=== PATIENT | female | born 1975 | race Caucasian/White ===

== ENCOUNTER 2017-02-22 17:06 | Emergency (ER) | payer MEDICAID ==
[2017-02-22 17:55] VITALS: BP 109/68; PULSE 74; RESP 18; TEMP 98.6; O2SAT 100
--- NOTE | 2017-02-22 18:29 | ED PDOC ---
HPI: Skin/Bite Injury Time Seen by Provider: 02/22/17 18:10 Chief Complaint (Nursing): Bite Chief Complaint (Provider): bite History Per: Patient History/Exam Limitations: no limitations Additional Complaint(s): 42yo F in ED for eval of left upper abdominal lesions noted 1 week ago and progressively worsened over the week with burning warmth redness and drainage after bug bite outdoors. admits to dizziness. denies fever chills nausea or vomiting. Past Medical History Reviewed: Historical Data, Nursing Documentation, Vital Signs Vital Signs: Last Vital Signs Temp 98.6 F 02/22/17 17:50 Pulse 74 02/22/17 17:50 Resp 18 02/22/17 17:50 BP 109/68 02/22/17 17:50 Pulse Ox 100 02/22/17 20:27 - Medical History PMH: Chronic Kidney Disease - Family History Family History: States: Unknown Family Hx - Home Medications Home Medications: Ambulatory Orders Medication Instructions Recorded Naproxen 500 mg PO BID #20 tab 05/28/16 Cephalexin [cephalexin] 500 mg PO BID #20 cap 02/22/17 Sulfamethoxazole/Trimethoprim 1 tab PO BID #14 tab 02/22/17 [Bactrim DS 800 mg-160 mg] - Allergies Allergies/Adverse Reactions: Allergies Allergy/AdvReac Type Severity Reaction Status Date / Time No Known Allergies Allergy Verified 05/28/16 12:46 Review of Systems ROS Statement: Except As Marked, All Systems Reviewed And Found Negative Skin: Positive for: Lesions (to left upper abd) Physical Exam - Reviewed Nursing Documentation Reviewed: Yes Vital Signs Reviewed: Yes - Physical Exam Appears: Positive for: Well, Non-toxic, No Acute Distress Skin: Positive for: Normal Color, Warm, DRY Cardiovascular/Chest: Positive for: Regular Rate, Rhythm Respiratory: Positive for: CNT, Normal Breath Sounds Gastrointestinal/Abdominal: Positive for: Tenderness (noted to left upper abd irregular shaped lesions with indruation open wound 3x2, with surrodning ertyhema warmth and streaking. lesion is superficial based on exma.), Other. Negative for: Normal Exam, Bowel Sounds, Soft Neurologic/Psych: Positive for: Alert, Oriented - Laboratory Results Result Diagrams: 02/22/17 19:30 02/22/17 19:30 - ECG O2 Sat by Pulse Oximetry: 100 - Radiology X-Ray: Interpreted by Me X-Ray Interpretation: No Acute Disease - Progress ED Course And Treament: pt will get IV abd in ED, labs and xray. Medical Decision Making Medical Decision Making: Pt with no elevated WBC pt stable in ED with stable VS. pt will need to re-eval in 3 days by PMD d/c with bactrim and Keflex. Disposition - Clinical Impression Clinical Impression: Cellulitis - Patient ED Disposition Is Patient to be Admitted: No Counseled Patient/Family Regarding: Studies Performed, Diagnosis, Need For Followup, Rx Given - Disposition Disposition: Routine/Home Disposition Time: 21:21 Condition: STABLE Prescriptions: Cephalexin [cephalexin] 500 mg PO BID #20 cap Sulfamethoxazole/Trimethoprim [Bactrim DS 800 mg-160 mg] 1 tab PO BID #14 tab Instructions: Cellulitis (ED)
[2017-02-22] MEDS ORDERED: cefTRIAXone (Rocephin) 1 gm Inj ONE (19:43)
[2017-02-22 20:10] LABS: BASO % 0.3 % (0.0-2.0); EOS # 0.3 K/uL (0.0-0.7); EOS % 4.7 % (0.0-4.0); MEAN CELL VOLUME 84.7 fl (81.0-99.0); MEAN CORPUSCULAR HEMOGLOBIN 27.7 pg (27.0-31.0); MEAN CORPUSCULAR HGB CONC 32.7 g/dL (33.0-37.0); MEAN PLATELET VOLUME 7.5 fl (7.2-11.7); MONO # 0.4 K/uL (0.0-0.8); NEUT # 3.3 K/uL (1.8-7.0); RBC 4.68 Mil/uL (3.80-5.20); RED CELL DISTRIBUTION WIDTH 13.8 % (11.5-14.5)
[2017-02-22 20:20] LABS: ALB/GLOB RATIO 1.3 (1.0-2.1); ALBUMIN 4.3 g/dL (3.5-5.0); ALT/SGPT 30 U/L (9-52); AST/SGOT 26 U/L (14-36); BLOOD UREA NITROGEN 15 mg/dl (7-17); CALCIUM 9.6 mg/dL (8.4-10.2); GFR AFRICAN-AMERICAN > 60; GFR NON-AFRICAN AMERICAN > 60
--- NOTE | 2017-02-23 09:40 | RAD ---
HISTORY: abscess COMPARISON: No prior. FINDINGS: BOWEL: Normal. No obstruction. No free air. BONES: Normal. OTHER FINDINGS: None. IMPRESSION: No radiographic evidence of acute/active disease in the abdomen and pelvis. If indicated further assessment by CT may be obtained.
== END 2017-02-22 22:00 | disposition home or self-care (01) ==
LOC: H.ER 17:06
DX: L03.90 Cellulitis, unspecified (principal); N18.9 Chronic kidney disease, unspecified

== ENCOUNTER 2017-05-02 11:07 | Emergency (ER) | payer MEDICAID ==
[2017-05-02 11:21] VITALS: BP 99/54; PULSE 68; RESP 16; TEMP 97.3; O2SAT 99
--- NOTE | 2017-05-02 11:45 | ED PDOC ---
HPI: Skin/Bite Injury Time Seen by Provider: 05/02/17 11:25 Chief Complaint (Nursing): Abnormal Skin Integrity Chief Complaint (Provider): Abscess, UTI History Per: Patient Additional Complaint(s): 42 yo female, no PMH, presents to ED with complaints of infected pimple on lt hip x 4 days, also states when she urinates she feels that her bladder does not fully empty, denies dysuria or hematuria No fever or chills. Past Medical History Reviewed: Nursing Documentation, Vital Signs Vital Signs: Last Vital Signs Temp 97.3 F L 05/02/17 11:17 Pulse 68 05/02/17 11:17 Resp 16 05/02/17 11:17 BP 99/54 L 05/02/17 11:17 Pulse Ox 99 05/02/17 11:45 - Medical History PMH: No Chronic Diseases - Surgical History Surgical History: No Surg Hx - Family History Family History: States: Unknown Family Hx - Living Arrangements Living Arrangements: With Family - Social History Current smoker - smoking cessation education provided: No Alcohol: Social Drugs: Denies - Home Medications Home Medications: Ambulatory Orders Medication Instructions Recorded RX: Naproxen 500 mg PO BID #20 tab 05/28/16 Cephalexin [cephalexin] 500 mg PO BID #20 cap 02/22/17 Sulfamethoxazole/Trimethoprim 1 tab PO BID #14 tab 02/22/17 [Bactrim DS 800 mg-160 mg] Cephalexin [cephalexin] 500 mg PO BID #14 cap 05/02/17 Sulfamethoxazole/Trimethoprim 1 tab PO BID 5 Days tab 05/02/17 [Bactrim DS 800 mg-160 mg] - Allergies Allergies/Adverse Reactions: Allergies Allergy/AdvReac Type Severity Reaction Status Date / Time No Known Allergies Allergy Verified 05/02/17 11:16 Review of Systems ROS Statement: Except As Marked, All Systems Reviewed And Found Negative Skin: Positive for: Lesions Physical Exam - Reviewed Nursing Documentation Reviewed: Yes Vital Signs Reviewed: Yes - Physical Exam Appears: Positive for: Well, Non-toxic, No Acute Distress Head Exam: Positive for: ATRAUMATIC, NORMAL INSPECTION, NORMOCEPHALIC Skin: Positive for: Normal Color, Warm, Rash (tender, erythematous, non fluctuant mass to left outter hip ~ 2 cm. ) Eye Exam: Positive for: EOMI, Normal appearance, PERRL ENT: Positive for: Normal ENT Inspection Neck: Positive for: Normal, Painless ROM Cardiovascular/Chest: Positive for: Regular Rate, Rhythm Respiratory: Positive for: CNT, Normal Breath Sounds Gastrointestinal/Abdominal: Positive for: Normal Exam, Bowel Sounds, Soft Back: Positive for: Normal Inspection. Negative for: L CVA Tenderness, R CVA Tenderness Extremity: Positive for: Normal ROM Neurologic/Psych: Positive for: Alert, Oriented - Laboratory Results Result Diagrams: 05/02/17 11:55 05/02/17 11:55 - ECG O2 Sat by Pulse Oximetry: 99 Medical Decision Making Medical Decision Making: IV access established and diagnostics ordered Labs resulted and reviewed with Pt who demonstrated full understanding Started on Bactrim and keflex. Warm compresses advised Disposition - Clinical Impression Clinical Impression: Cellulitis, Abscess - Patient ED Disposition Is Patient to be Admitted: No - Disposition Disposition: Routine/Home Disposition Time: 14:19 Condition: STABLE Prescriptions: Cephalexin [cephalexin] 500 mg PO BID #14 cap Sulfamethoxazole/Trimethoprim [Bactrim DS 800 mg-160 mg] 1 tab PO BID 5 Days tab Instructions: Abscess (ED), Cellulitis (ED) Forms: [employer] (Japanese)
[2017-05-02 12:06] LABS: BASO % 0.5 % (0.0-2.0); EOS # 0.2 K/uL (0.0-0.7); EOS % 4.4 % (0.0-4.0); HEMATOCRIT 40.9 % (34.0-47.0); LYMPH # 1.9 K/uL (1.0-4.3); MEAN CORPUSCULAR HEMOGLOBIN 27.2 pg (27.0-31.0); MEAN PLATELET VOLUME 7.3 fl (7.2-11.7); MONO # 0.3 K/uL (0.0-0.8); MONO % 5.3 % (0.0-10.0); NEUT % 54.8 % (50.0-75.0); NRBC % 0.1 % (0.0-0.0); RED CELL DISTRIBUTION WIDTH 13.7 % (11.5-14.5); WHITE BLOOD COUNT 5.4 K/uL (4.8-10.8)
[2017-05-02 12:08] LABS: ALB/GLOB RATIO 1.3 (1.0-2.1); ALKALINE PHOSPHATASE 56 U/L (38-126); ALT/SGPT 29 U/L (9-52); AST/SGOT 22 U/L (14-36); BILIRUBIN,TOTAL 0.5 mg/dl (0.2-1.3); BLOOD UREA NITROGEN 11 mg/dl (7-17); CALCIUM 9.4 mg/dL (8.4-10.2); CARBON DIOXIDE 26 mmol/L (22-30); CHLORIDE 103 mmol/L (98-107); GFR AFRICAN-AMERICAN > 60; GLUCOSE,RANDOM 89 mg/dL (65-105); POTASSIUM 4.1 MMOL/L (3.6-5.0); SODIUM 142 mmol/l (132-148); TOTAL PROTEIN 7.6 G/DL (6.3-8.2)
[2017-05-02 12:44] LABS: RBC URINE 3 /hpf (0-3); URINE BILIRUBIN NEGATIVE (NEGATIVE); URINE BLOOD NEGATIVE (NEGATIVE); URINE COLOR YELLOW (YELLOW); URINE GLUCOSE (UA) NEG (Normal); URINE KETONE NEGATIVE (NEGATIVE); URINE LEUKOCYTE ESTERASE NEG Leu/uL (Negative); URINE PROTEIN NEGATIVE (NEGATIVE); URINE UROBILINOGEN 0.2-1.0 mg/dL (0.2-1.0); WBC URINE < 1 /hpf (0-5)
[2017-05-02] MEDS ORDERED: Tmp-Smz 800 mg-160 mg DS Tab PO STA (13:57)
[2017-05-02] MEDS ORDERED: Tmp-Smz 800 mg-160 mg DS Tab ONE (14:04)
== END 2017-05-02 14:16 | disposition home or self-care (01) ==
LOC: H.ER 11:07
DX: L02.416 Cutaneous abscess of left lower limb (principal); L03.116 Cellulitis of left lower limb

== ENCOUNTER 2017-09-11 11:21 | Emergency (ER) | payer MEDICAID ==
[2017-09-11 11:47] VITALS: BP 113/57; PULSE 65; RESP 16; TEMP 98.7; O2SAT 100
--- NOTE | 2017-09-11 12:22 | ED PDOC ---
HPI: General Adult Time Seen by Provider: 09/11/17 11:48 Chief Complaint (Nursing): Breast Problem Chief Complaint (Provider): Breast Problem History Per: Patient History/Exam Limitations: no limitations Onset/Duration Of Symptoms: Days (x1 month) Current Symptoms Are (Timing): Still Present Additional Complaint(s): 42 year old female with no significant past medical history, who presents to the ED complaining of intermittent pain and swelling to her left breast x1 month. Denies fever, trauma, drainage, or swelling. Also denies discharge from nipple. PMD: Patrice Gillespie Past Medical History Reviewed: Historical Data, Nursing Documentation, Vital Signs Vital Signs: Last Vital Signs Temp 98.7 F 09/11/17 11:44 Pulse 65 09/11/17 11:44 Resp 16 09/11/17 11:44 BP 113/57 L 09/11/17 11:44 Pulse Ox 100 09/11/17 12:33 - Medical History PMH: Chronic Kidney Disease - Surgical History Surgical History: No Surg Hx - Family History Family History: States: Unknown Family Hx - Home Medications Home Medications: Ambulatory Orders Medication Instructions Recorded Naproxen 500 mg PO BID #20 tab 05/28/16 Cephalexin [cephalexin] 500 mg PO BID #20 cap 02/22/17 Sulfamethoxazole/Trimethoprim 1 tab PO BID #14 tab 02/22/17 [Bactrim DS 800 mg-160 mg] Cephalexin [cephalexin] 500 mg PO BID #14 cap 05/02/17 Sulfamethoxazole/Trimethoprim 1 tab PO BID 5 Days tab 05/02/17 [Bactrim DS 800 mg-160 mg] Naproxen [Naprosyn] 500 mg PO Q12H #20 tab 09/11/17 - Allergies Allergies/Adverse Reactions: Allergies Allergy/AdvReac Type Severity Reaction Status Date / Time No Known Allergies Allergy Verified 09/11/17 11:44 Review of Systems ROS Statement: Except As Marked, All Systems Reviewed And Found Negative Musculoskeletal: Positive for: Other (left breast pain) Physical Exam - Reviewed Nursing Documentation Reviewed: Yes Vital Signs Reviewed: Yes - Physical Exam Appears: Positive for: Well, Non-toxic, No Acute Distress Head Exam: Positive for: ATRAUMATIC, NORMAL INSPECTION, NORMOCEPHALIC Skin: Positive for: Normal Color, Warm, Dry. Negative for: Rash Eye Exam: Positive for: EOMI, Normal appearance, PERRL ENT: Positive for: Normal ENT Inspection Neck: Positive for: Normal, Painless ROM, Supple Cardiovascular/Chest: Positive for: Regular Rate, Rhythm, Other (no focal mass or tenderness to left breast throughout fibrocystic area, no LAD, no discharge from nipple ). Negative for: Murmur Respiratory: Positive for: Normal Breath Sounds. Negative for: Respiratory Distress Gastrointestinal/Abdominal: Positive for: Normal Exam, Bowel Sounds, Soft. Negative for: Tenderness Back: Positive for: Normal Inspection. Negative for: L CVA Tenderness, R CVA Tenderness Extremity: Positive for: Normal ROM. Negative for: Pedal Edema, Deformity Lymphatic: Negative for: Adenopathy Neurologic/Psych: Positive for: Alert, Oriented (x3). Negative for: Motor/ Sensory Deficits - ECG O2 Sat by Pulse Oximetry: 100 (RA) Pulse Ox Interpretation: Normal Medical Decision Making Medical Decision Making: Time: 12:00 Initial Plan: --Reevaluation Scribe Attestation: Documented by Derrell Lucero, acting as a scribe for Peng Gaona MD. Provider Scribe Attestation: All medical record entries made by the Scribe were at my direction and personally dictated by me. I have reviewed the chart and agree that the record accurately reflects my personal performance of the history, physical exam, medical decision making, and the department course for this patient. I have also personally directed, reviewed, and agree with the discharge instructions and disposition. Disposition - Clinical Impression Clinical Impression: Disorder of breast - Patient ED Disposition Is Patient to be Admitted: No - Disposition Referrals: [facility] [Outside] Disposition: Routine/Home Disposition Time: 12:35 Condition: FAIR Additional Instructions: Mammogram Prescriptions: Naproxen [Naprosyn] 500 mg PO Q12H #20 tab Instructions: Breast Self Exam for Women (ED) Forms: [employer] (Gambian)
== END 2017-09-11 12:49 | disposition home or self-care (01) ==
LOC: H.ER 11:21
DX: N64.9 Disorder of breast, unspecified (principal); N18.9 Chronic kidney disease, unspecified

== ENCOUNTER 2018-02-10 01:07 | Emergency (ER) | payer MEDICAID ==
--- NOTE | 2018-02-10 03:09 | ED PDOC ---
HPI: Chest Pain Time Seen by Provider: 02/10/18 01:43 Chief Complaint (Nursing): Chest Pain Chief Complaint (Provider): Chest Pain History Per: Patient History/Exam Limitations: no limitations Onset/Duration Of Symptoms: Hrs, Intermittent Episodes Current Symptoms Are (Timing): Still Present Quality: Pressure, "Pain" Associated Symptoms: Dyspnea Additional Complaint(s): Bobbi Pascal is a 43 year old female with a past medical history of renal disease who is presenting to the ED with complaints of chest pain, onset around 8 pm last night. She states that she experiences intermittent episodes of pressure and pain in the chest associated with shortness of breath and tingling in the hands. Patient denies any cough or fevers. PMD: none provided Past Medical History Reviewed: Historical Data, Nursing Documentation, Vital Signs Vital Signs: Last Vital Signs Temp 97.6 F 02/10/18 01:17 Pulse 74 02/10/18 03:19 Resp 18 02/10/18 01:17 BP 103/49 L 02/10/18 01:58 Pulse Ox 100 02/10/18 03:19 - Medical History PMH: Chronic Kidney Disease - Surgical History Other surgeries: Tubal Ligation - Family History Family History: States: Unknown Family Hx - Social History Current smoker - smoking cessation education provided: No Alcohol: None Drugs: Denies - Home Medications Home Medications: Ambulatory Orders Medication Instructions Recorded Naproxen 500 mg PO BID #20 tab 05/28/16 Cephalexin [cephalexin] 500 mg PO BID #20 cap 02/22/17 Sulfamethoxazole/Trimethoprim 1 tab PO BID #14 tab 02/22/17 [Bactrim DS 800 mg-160 mg] Cephalexin [cephalexin] 500 mg PO BID #14 cap 05/02/17 Sulfamethoxazole/Trimethoprim 1 tab PO BID 5 Days tab 05/02/17 [Bactrim DS 800 mg-160 mg] Naproxen [Naprosyn] 500 mg PO Q12H #20 tab 09/11/17 - Allergies Allergies/Adverse Reactions: Allergies Allergy/AdvReac Type Severity Reaction Status Date / Time No Known Allergies Allergy Verified 09/11/17 11:44 VALENTINE Risk Score for UA/NSTEMI - VALENTINE Risk Score Age > 64: NO 3 or more CAD Risk Factors: NO Known CAD (Stenosis greater than 50%): NO Aspirin use in past 7 days: NO Severe Angina: NO EKG ST changes greater than 0.5mm: NO Positive Cardiac Marker: NO VALENTINE Score: 0 Risk %: 5% Wells Criteria for PE - Wells Criteria for Pulmonary Embolism Clinical Signs and Symptoms of DVT: No P.E is #1 Diagnosis, or Equally Likely: No Heart Rate >100: No Immobilization at least 3 days;Surgery previous 4 weeks: No Previous, objectively diagnosed PE or DVT: No Hemoptysis: No Malignancy w/treatment within 6 months, or palliative: No Total Score: 0 Review of Systems ROS Statement: Except As Marked, All Systems Reviewed And Found Negative Constitutional: Negative for: Fever Cardiovascular: Positive for: Chest Pain Respiratory: Positive for: Shortness of Breath. Negative for: Cough Neurological: Positive for: Other (tingling in hands) Physical Exam - Reviewed Nursing Documentation Reviewed: Yes Vital Signs Reviewed: Yes - Physical Exam Appears: Positive for: Non-toxic, No Acute Distress Head Exam: Positive for: ATRAUMATIC, NORMAL INSPECTION, NORMOCEPHALIC Skin: Positive for: Normal Color, Warm, DRY Eye Exam: Positive for: EOMI, Normal appearance, PERRL ENT: Positive for: Normal ENT Inspection Neck: Positive for: Normal, Painless ROM Cardiovascular/Chest: Positive for: Regular Rate, Rhythm, Other (left chest wall tenderness). Negative for: Murmur Respiratory: Positive for: Normal Breath Sounds. Negative for: Respiratory Distress Gastrointestinal/Abdominal: Positive for: Normal Exam, Soft. Negative for: Tenderness Back: Positive for: Normal Inspection Extremity: Positive for: Normal ROM. Negative for: Deformity, Swelling Neurologic/Psych: Positive for: Alert, Oriented. Negative for: Motor/Sensory Deficits - Laboratory Results Result Diagrams: 02/10/18 03:19 02/10/18 03:19 - ECG ECG Rhythm: Positive for: Normal QRS, Normal ST Segment, Sinus Rhythm (normal) Rate: 74 O2 Sat by Pulse Oximetry: 100 (RA) Pulse Ox Interpretation: Normal Medical Decision Making Medical Decision Making: Time: 2:56 Impression: Chest Pain Differentials: ACS, Pulmonary Embolism, costochondritis, anemia Plan: --EKG --BMP --Troponin --ED urine --CBC --D Dimer --CXR Scribe Attestation: Documented by, Cordelia Araya acting as a scribe for Kaiser Sifuentes MD. Provider Scribe Attestation: All medical record entries made by the Scribe were at my direction and personally dictated by me. I have reviewed the chart and agree that the record accurately reflects my personal performance of the history, physical exam, medical decision making, and the department course for this patient. I have also personally directed, reviewed, and agree with the discharge instructions and disposition. Disposition - Clinical Impression Clinical Impression: Chest pain - Patient ED Disposition Is Patient to be Admitted: No Doctor Will See Patient In The: Office Counseled Patient/Family Regarding: Studies Performed, Diagnosis, Need For Followup - Disposition Disposition: Routine/Home Disposition Time: 04:46 Condition: GOOD Additional Instructions: Follow up with your PCP in 2-3 days. Take motrin for pain. Return for worsening. Instructions: Chest Pain
[2018-02-10 03:26] LABS: BASO % 0.4 % (0.0-2.0); EOS # 0.3 K/uL (0.0-0.7); EOS % 3.5 % (0.0-4.0); HEMOGLOBIN 13.8 g/dL (12.0-16.0); LYMPH # 2.1 K/uL (1.0-4.3); LYMPH % 29.6 % (20.0-40.0); MEAN CORPUSCULAR HEMOGLOBIN 28.8 pg (27.0-31.0); MEAN CORPUSCULAR HGB CONC 33.9 g/dL (33.0-37.0); MEAN PLATELET VOLUME 7.2 fl (7.2-11.7); MONO # 0.4 K/uL (0.0-0.8); MONO % 4.9 % (0.0-10.0); NEUT # 4.4 K/uL (1.8-7.0); NEUT % 61.6 % (50.0-75.0); NRBC % 0.2 % (0.0-0.0); RBC 4.8 Mil/uL (3.80-5.20); RED CELL DISTRIBUTION WIDTH 13.4 % (11.5-14.5); WHITE BLOOD COUNT 7.2 K/uL (4.8-10.8)
[2018-02-10 03:35] LABS: BLOOD UREA NITROGEN 13 mg/dl (7-17); CALCIUM 9.1 mg/dL (8.4-10.2); GFR AFRICAN-AMERICAN > 60; GFR NON-AFRICAN AMERICAN > 60
[2018-02-10 05:40] VITALS: BP 101/68; PULSE 62; RESP 16; TEMP 98.6; O2SAT 98
--- NOTE | 2018-02-10 10:26 | RAD ---
PROCEDURE: CHEST RADIOGRAPH, 1 VIEW HISTORY: chest pain COMPARISON: 01/23/2016 FINDINGS: LUNGS: Clear. PLEURA: No pneumothorax or pleural fluid seen. CARDIOVASCULAR: Normal. OSSEOUS STRUCTURES: No significant abnormalities. VISUALIZED UPPER ABDOMEN: Normal. OTHER FINDINGS: None. IMPRESSION: No active disease. No acute/significant interval changes.
--- NOTE | 2018-02-10 18:05 | CARD ---
APPROVED REPORT EKG Measurement Heart [id number] <Conclusion> Normal sinus rhythm Normal ECG
== END 2018-02-10 05:27 | disposition home or self-care (01) ==
LOC: H.ER 01:07
DX: R07.89 Other chest pain (principal); N18.9 Chronic kidney disease, unspecified

== ENCOUNTER 2018-03-12 11:12 | Emergency (ER) | payer MEDICAID ==
[2018-03-12 11:22] VITALS: PULSE 59
--- NOTE | 2018-03-12 12:02 | ED PDOC ---
HPI: General Adult Time Seen by Provider: 03/12/18 11:50 Chief Complaint (Nursing): Abnormal Skin Integrity Chief Complaint (Provider): Abnormal Skin Integrity History Per: Patient History/Exam Limitations: no limitations Onset/Duration Of Symptoms: Days Current Symptoms Are (Timing): Still Present Additional Complaint(s): 43 y/o female presents to the ED complaining of small swelling under the right armpit, onset a few days ago. Patient reports of similar swelling in the left gluteal region that resolved with antibiotics. Patient also reports of having a breast ultrasound performed recently within the last few months and noted multiple cysts on her breasts. Patient also complains of mild vaginal pruritus. Denies fever and chills. PMD: None Provided. Past Medical History Reviewed: Historical Data, Nursing Documentation, Vital Signs Vital Signs: Last Vital Signs Temp 97.8 F 03/12/18 11:21 Pulse 59 L 03/12/18 11:21 Resp 18 03/12/18 11:21 BP 94/58 L 03/12/18 11:21 Pulse Ox 100 03/12/18 12:07 - Medical History PMH: Chronic Kidney Disease - Surgical History Surgical History: No Surg Hx - Family History Family History: States: Unknown Family Hx - Home Medications Home Medications: Ambulatory Orders Medication Instructions Recorded Naproxen 500 mg PO BID #20 tab 05/28/16 Cephalexin [cephalexin] 500 mg PO BID #20 cap 02/22/17 Sulfamethoxazole/Trimethoprim 1 tab PO BID #14 tab 02/22/17 [Bactrim DS 800 mg-160 mg] Cephalexin [cephalexin] 500 mg PO BID #14 cap 05/02/17 Sulfamethoxazole/Trimethoprim 1 tab PO BID 5 Days tab 05/02/17 [Bactrim DS 800 mg-160 mg] Naproxen [Naprosyn] 500 mg PO Q12H #20 tab 09/11/17 Clindamycin [Cleocin] 300 mg PO Q6 #28 cap 03/12/18 Miconazole Nitrate [Monistat 3] 1 each VG DAILY #3 kit 03/12/18 - Allergies Allergies/Adverse Reactions: Allergies Allergy/AdvReac Type Severity Reaction Status Date / Time No Known Allergies Allergy Verified 09/11/17 11:44 Review of Systems ROS Statement: Except As Marked, All Systems Reviewed And Found Negative Constitutional: Negative for: Fever, Chills Genitourinary Female: Positive for: Other (mild vaginal pruritus) Musculoskeletal: Positive for: Other (small swelling under right armpit. ) Physical Exam - Reviewed Nursing Documentation Reviewed: Yes Vital Signs Reviewed: Yes - Physical Exam Appears: Positive for: No Acute Distress Head Exam: Positive for: ATRAUMATIC Skin: Positive for: Normal Color, Warm, Dry Eye Exam: Positive for: Normal appearance Neck: Positive for: Normal, Painless ROM Cardiovascular/Chest: Negative for: Bradycardia, Tachycardia Respiratory: Negative for: Respiratory Distress Extremity: Positive for: Normal ROM, Swelling (1 cm swelling in the right axillary region, indurated with mild surrounding erythema noted. ). Negative for: Deformity Neurologic/Psych: Positive for: Alert, Oriented (x3). Negative for: Motor/ Sensory Deficits - ECG O2 Sat by Pulse Oximetry: 100 (RA) Pulse Ox Interpretation: Normal Medical Decision Making Medical Decision Making: -- Will prescribe antibiotics and warm compress. Patient advised to return to the ER in a few days for re-evaluation. Scribe Attestation: Documented by Anne-Marie Ramsey, acting as a scribe for Kimberley Stout PA-C. Provider Scribe Attestation: All medical record entries made by the Scribe were at my direction and personally dictated by me. I have reviewed the chart and agree that the record accurately reflects my personal performance of the history, physical exam, medical decision making, and the department course for this patient. I have also personally directed, reviewed, and agree with the discharge instructions and disposition. Disposition - Clinical Impression Clinical Impression: Abscess - Patient ED Disposition Is Patient to be Admitted: No - Disposition Disposition: Routine/Home Disposition Time: 12:15 Condition: FAIR Additional Instructions: PLEASE PLACE WARM COMPRESSES X 2 DAYS AND RETURN FOR WORSENING ABSCESS. FOLLOW UP WITH GYM FOR REPEAT BREAST EXAM IF NEEDED. Prescriptions: Clindamycin [Cleocin] 300 mg PO Q6 #28 cap Miconazole Nitrate [Monistat 3] 1 each VG DAILY #3 kit Instructions: Skin Abscess
[2018-03-12 12:34] VITALS: BP 127/88; RESP 16; TEMP 98.5; O2SAT 98
== END 2018-03-12 12:33 | disposition home or self-care (01) ==
LOC: H.ER 11:12
DX: N61.1 Abscess of the breast and nipple (principal)

== ENCOUNTER 2018-06-25 10:30 | Emergency (ER) | payer SELFPAY ==
[2018-06-25 10:49] VITALS: BMI 25.8
--- NOTE | 2018-06-25 12:42 | US ---
Date of service: 06/25/2018 HISTORY: LUQ and epigastric pain COMPARISON: None. TECHNIQUE: Grayscale imaging was performed. FINDINGS: LIVER: Measures 16.7 cm. There is mild diffuse increased echogenicity of the liver parenchyma. No mass. No intrahepatic bile duct dilatation. GALLBLADDER: There are no gallstones, wall thickening or pericholecystic fluid. The sonographic Albert's sign is negative. COMMON BILE DUCT: Measures 4.7 mm. No stones. No dilatation. PANCREAS: Unremarkable as visualized. No mass. No ductal dilatation. RIGHT KIDNEY: Measures 12.0cm. Normal echogenicity. No calculus, mass, or hydronephrosis. LEFT KIDNEY: Measures 11.7cm. Normal echogenicity. No calculus, mass, or hydronephrosis. SPLEEN: Normal in size and contour. No mass. AORTA: No aneurysmal dilatation. IVC: Unremarkable. OTHER FINDINGS: None. IMPRESSION: Mild hepatomegaly and fatty liver. No cholelithiasis or biliary dilatation.
[2018-06-25 12:59] LABS: BASO % 0.3 % (0.0-2.0); EOS # 0.2 K/uL (0.0-0.7); EOS % 3.6 % (0.0-4.0); HEMOGLOBIN 13.7 g/dL (12.0-16.0); LYMPH # 1.8 K/uL (1.0-4.3); LYMPH % 28.4 % (20.0-40.0); MEAN CELL VOLUME 87.8 fl (81.0-99.0); MEAN CORPUSCULAR HEMOGLOBIN 27.9 pg (27.0-31.0); MEAN CORPUSCULAR HGB CONC 31.8 g/dL (33.0-37.0); MEAN PLATELET VOLUME 7.5 fl (7.2-11.7); MONO # 0.3 K/uL (0.0-0.8); MONO % 4.7 % (0.0-10.0); NEUT # 3.9 K/uL (1.8-7.0); NRBC % 0.2 % (0.0-0.0); RBC 4.92 Mil/uL (3.80-5.20); RED CELL DISTRIBUTION WIDTH 13.5 % (11.5-14.5); WHITE BLOOD COUNT 6.3 K/uL (4.8-10.8)
[2018-06-25 13:14] LABS: ALB/GLOB RATIO 1.1 (1.0-2.1); ALBUMIN 4.1 g/dL (3.5-5.0); ALT/SGPT 26 U/L (9-52); AST/SGOT 31 U/L (14-36); BLOOD UREA NITROGEN 17 mg/dl (7-17); CALCIUM 9.4 mg/dL (8.4-10.2); GFR NON-AFRICAN AMERICAN > 60; LIPASE 97 U/L (23-300)
--- NOTE | 2018-06-25 13:48 | RAD ---
Date of service: 06/25/2018 HISTORY: LUQ and Chest discomfort COMPARISON: 02/10/2018 TECHNIQUE: Chest PA and lateral FINDINGS: LUNGS: No active pulmonary disease. PLEURA: No significant pleural effusion identified. No pneumothorax apparent. CARDIOVASCULAR: No aortic atherosclerotic calcification present. Normal cardiac size. No pulmonary vascular congestion. OSSEOUS STRUCTURES: No significant abnormalities. VISUALIZED UPPER ABDOMEN: Normal. OTHER FINDINGS: None. IMPRESSION: No active disease.
[2018-06-25 14:29] VITALS: BP 110/76; RESP 19; TEMP 97.5; O2SAT 98
--- NOTE | 2018-07-01 13:30 | ED PDOC ---
HPI: Abdomen Time Seen by Provider: 06/25/18 11:08 Chief Complaint (Nursing): Abdominal Pain Chief Complaint (Provider): abdominal pain History Per: Patient History/Exam Limitations: no limitations Context: Food Severity: Mild Location Of Pain/Discomfort: LUQ. denies: RLQ, LLQ, Suprapubic Quality Of Discomfort: Sharp Associated Symptoms: Nausea. denies: Vomiting, Diarrhea, Urinary Symptoms Exacerbating Factors: None Alleviating Factors: None Additional Complaint(s): 43yo female with LUQ abdominal pain ongoing for several weeks intermittently. Denies melena, weakness, fever, cough, chest pain or SOB although notes occasional palpitations when pain presents. Has taken PPI in past, now off. Denies NSAID abuse or etoh abuse. Abnormal Vaginal Bleeding: No Past Medical History Reviewed: Historical Data, Nursing Documentation, Vital Signs Vital Signs: Last Vital Signs Temp 97.5 F L 06/25/18 14:28 Pulse 78 06/25/18 14:28 Resp 19 06/25/18 14:28 BP 110/76 06/25/18 14:28 Pulse Ox 98 06/25/18 14:28 - Medical History PMH: Chronic Kidney Disease - Family History Family History: States: Unknown Family Hx - Home Medications Home Medications: Ambulatory Orders Medication Instructions Recorded Naproxen 500 mg PO BID #20 tab 05/28/16 Cephalexin [cephalexin] 500 mg PO BID #20 cap 02/22/17 Sulfamethoxazole/Trimethoprim 1 tab PO BID #14 tab 02/22/17 [Bactrim DS 800 mg-160 mg] Cephalexin [cephalexin] 500 mg PO BID #14 cap 05/02/17 Sulfamethoxazole/Trimethoprim 1 tab PO BID 5 Days tab 05/02/17 [Bactrim DS 800 mg-160 mg] Naproxen [Naprosyn] 500 mg PO Q12H #20 tab 09/11/17 Clindamycin [Cleocin] 300 mg PO Q6 #28 cap 03/12/18 Miconazole Nitrate [Monistat 3] 1 each VG DAILY #3 kit 03/12/18 Ranitidine HCl [Zantac] 150 mg PO BID #20 tablet 06/25/18 - Allergies Allergies/Adverse Reactions: Allergies Allergy/AdvReac Type Severity Reaction Status Date / Time No Known Allergies Allergy Verified 09/11/17 11:44 Physical Exam - Reviewed Nursing Documentation Reviewed: Yes Vital Signs Reviewed: Yes - Physical Exam Appears: Positive for: Well, Non-toxic, No Acute Distress Head Exam: Positive for: ATRAUMATIC, NORMAL INSPECTION, NORMOCEPHALIC Skin: Positive for: Normal Color, Warm, DRY Eye Exam: Positive for: EOMI, Normal appearance, PERRL ENT: Positive for: Normal ENT Inspection Neck: Positive for: Normal, Painless ROM Cardiovascular/Chest: Positive for: Regular Rate, Rhythm Respiratory: Positive for: CNT, Normal Breath Sounds Pulses-Radial (L): 3+/4+ Pulses-Radial (R): 3+/4+ Gastrointestinal/Abdominal: Positive for: Soft, Tenderness (minimal tenderness LUQ, all other abdominal quandrants neg for tenderness). Negative for: Guarding, Rebound Back: Negative for: Decreased ROM Extremity: Positive for: Normal ROM. Negative for: Deformity, Swelling Neurologic/Psych: Positive for: Alert, Oriented. Negative for: Motor/Sensory Deficits - Laboratory Results Result Diagrams: 06/25/18 12:40 06/25/18 12:40 - ECG ECG: Positive for: Interpreted By Sd ECG Rhythm: Positive for: Sinus Rhythm, Nonspecific Changes Rate: 62 O2 Sat by Pulse Oximetry: 98 Pulse Ox Interpretation: Normal Medical Decision Making Medical Decision Making: labs and US reviewed, unremarkable improved in ED, abdomen nontender on re-eval vitals stable followup GI for definitive testing Disposition - Clinical Impression Clinical Impression: Abdominal pain, Palpitations - Patient ED Disposition Is Patient to be Admitted: No Counseled Patient/Family Regarding: Studies Performed, Diagnosis, Need For Fo llowup, Rx Given - Disposition Disposition Time: 14:10 Condition: STABLE Additional Instructions: Followup with primary doctor for possible referral to GI doctor for further testing and possible endoscopy, evaluation of borderline enlarged liver. Take zantac 2x daily for 10 days, recommend bland diet and return ER for any worsening or new symptoms. Prescriptions: Ranitidine HCl [Zantac] 150 mg PO BID #20 tablet Instructions: Acute Abdomen (Belly Pain), Palpitations (DC) Forms: [facility] [employer] [facility] ([place])
[2018-07-01 13:36] VITALS: PULSE 62
== END 2018-06-25 14:32 | disposition home or self-care (01) ==
LOC: H.ER 10:30
DX: R10.9 Unspecified abdominal pain (principal); R00.2 Palpitations; N18.9 Chronic kidney disease, unspecified